=== PATIENT | female | born 1985 | race American Indian/Alaskan Native ===

== ENCOUNTER 2020-02-19 00:55 | Emergency (ER) | payer MEDICARE ==
[2020-02-19] MEDS ORDERED: levETIRAcetam 1000 MG/NS 0.75% 1,000 MG/100 ML BAG IV ONE (01:01)
--- NOTE | 2020-02-19 01:01 | Emergency Department Report ---
ED Seizure HPI - General Chief Complaint: Seizure Stated Complaint: SEIZURE Time Seen by Provider: 02/19/20 00:59 Source: patient, EMS Mode of arrival: Stretcher Limitations: No Limitations - History of Present Illness Initial Comments: Patient is a 34-year-old female that presents emergency room with EMS for seizure. Patient has a known seizure history. Patient has been noncompliant with her seizure medication for 2 days. Patient had a grand mal seizure at home and her family called EMS. Patient did not have any trauma. Patient denies any complaints except malaise. Patient answering questions appropriate. Patient denies chest pain or shortness of breath. Patient denies recent travel. Patient denies recent international travel. Patient denies exposure to the novel coronavirus. Patient denies sick contacts. Patient denies fever and chills. Patient denies cough. Patient denies diarrhea. Patient denies coming in contact with anybody with symptoms of the novel coronavirus. MD Complaint: seizure -: Sudden Description of Episode: loss of consciousness, tonic-clonic movement -: second(s) Witnessed:: Yes Trauma: No Seizure History: known seizure disorder, history of non-compliance Place: home Possible Precipitating Event: none Associated Symptoms: denies other symptoms - Related Data Home Medications Medication Instructions Recorded Confirmed Last Taken Divalproex ER [Depakote ER] 1,500 mg PO QDAY 07/23/13 08/06/13 08/05/13 21:00 clonazePAM [KlonoPIN] 1 mg PO BID 07/23/13 08/06/13 08/06/13 05:30 Folic Acid 1 mg PO DAILY 08/05/13 08/06/13 08/05/13 21:00 Previous Rx's Medication Instructions Recorded Last Taken Type Naproxen Sodium (Nf) [Anaprox DS 550 mg PO BID PRN #14 tablet 07/23/13 08/03/13 21:00 Rx TAB] HYDROcodone/ACETAMINOPHEN [[place] 1 each PO QID PRN #24 tablet 08/06/13 Unknown Rx 5/325 Tablet] levETIRAcetam [Keppra TAB] 500 mg PO BID 15 Days #30 tablet 02/19/20 Unknown Rx Allergies Allergy/AdvReac Type Severity Reaction Status Date / Time No Known Allergies Allergy Verified 07/23/13 21:14 ED Review of Systems ROS: Stated complaint: SEIZURE Other details as noted in HPI Constitutional: malaise. denies: chills, fever Eyes: denies: eye pain, eye discharge, vision change ENT: denies: ear pain, throat pain Respiratory: denies: cough, shortness of breath, wheezing Cardiovascular: denies: chest pain, palpitations Endocrine: no symptoms reported Gastrointestinal: denies: abdominal pain, nausea, diarrhea Genitourinary: denies: urgency, dysuria, discharge Musculoskeletal: denies: back pain, joint swelling, arthralgia Skin: denies: rash, lesions Neurological: denies: headache, weakness, paresthesias Psychiatric: denies: anxiety, depression Hematological/Lymphatic: denies: easy bleeding, easy bruising ED Past Medical Hx - Past Medical History Previous Medical History?: Yes Hx Hypertension: No Hx Seizures: Yes (on klonopin and depakote) Hx Asthma: No - Surgical History Past Surgical History?: Yes - Family History Family history: no significant - Social History Smoking Status: Never Smoker - Medications Home Medications: Home Medications Medication Instructions Recorded Confirmed Last Taken Type Divalproex ER [Depakote ER] 1,500 mg PO QDAY 07/23/13 08/06/13 08/05/13 21:00 History Naproxen Sodium (Nf) [Anaprox DS 550 mg PO BID PRN #14 tablet 07/23/13 08/06/13 08/03/13 21:00 Rx TAB] clonazePAM [KlonoPIN] 1 mg PO BID 07/23/13 08/06/13 08/06/13 05:30 History Folic Acid 1 mg PO DAILY 08/05/13 08/06/13 08/05/13 21:00 History HYDROcodone/ACETAMINOPHEN [[place] 1 each PO QID PRN #24 tablet 08/06/13 Unknown Rx 5/325 Tablet] levETIRAcetam [Keppra TAB] 500 mg PO BID 15 Days #30 tablet 02/19/20 Unknown Rx ED Physical Exam - General Limitations: No Limitations General appearance: alert, in no apparent distress - Head Head exam: Present: atraumatic, normocephalic - Eye Eye exam: Present: normal appearance - ENT ENT exam: Present: mucous membranes moist - Neck Neck exam: Present: normal inspection - Respiratory Respiratory exam: Present: normal lung sounds bilaterally. Absent: respiratory distress - Cardiovascular Cardiovascular Exam: Present: regular rate, normal rhythm. Absent: systolic murmur, diastolic murmur, rubs, gallop - GI/Abdominal GI/Abdominal exam: Present: soft, normal bowel sounds - Extremities Exam Extremities exam: Present: normal inspection - Back Exam Back exam: Present: normal inspection - Neurological Exam Neurological exam: Present: alert, oriented X3 - Psychiatric Psychiatric exam: Present: normal affect, normal mood - Skin Skin exam: Present: warm, dry, intact, normal color. Absent: rash ED Course Vital Signs 02/19/20 02/19/20 02/19/20 00:58 01:01 01:05 Temperature 99.8 F H Pulse Rate 99 H Respiratory 22 21 Rate Blood Pressure 124/81 [left arm] O2 Sat by Pulse 99 Oximetry - Reevaluation(s) Reevaluation #1: Patient resting comfortably. No seizure activity. Patient is answering questio ns appropriately. 02/19/20 02:16 Reevaluation #2: I discussed all results and clinical findings with patient. I discussed plan of care with patient. Patient agrees with plan of care. Patient is stable for discharge. Patient will be discharged home. Patient given discharge instructions. Patient voiced understanding of discharge instructions. 02/19/20 03:17 ED Medical Decision Making - Lab Data Result diagrams: 02/19/20 01:23 02/19/20 01:23 - Medical Decision Making Patient is a 34-year-old female that presents emergency room for seizure activity. Patient has a known history of seizures. Patient has been noncompliant with out of her medications. Patient is supposed to be on Keppra 500 mg twice a day. Patient had labs done which were essentially markable. P atient was given a gram of Keppra IV. Patient did not have any further seizure activity with EMS or while in ER. Patient stable for discharge. Patient discharged home. Patient given discharge instructions. - Differential Diagnosis Seizure, noncompliance, missed medications. Critical care attestation.: If time is entered above; I have spent that time in minutes in the direct care of this critically ill patient, excluding procedure time. ED Disposition Clinical Impression: Seizure, Noncompliance with medications Disposition: DC-01 TO HOME OR SELFCARE Is pt being admited?: No Does the pt Need Aspirin: No Condition: Stable Instructions: Epilepsy, [id number], Seizure, Adult, [id number] Additional Instructions: Patient to follow-up with primary care in 2 to 3 days. Patient to follow-up with neurology in 2 to 3 days. Patient to rest. Patient to increase water. Patient to avoid strenuous exercise or heavy lifting until cleared by neurology. Patient to avoid driving. Patient to take Tylenol or ibuprofen as needed for pain. Patient to take meds as directed. Patient to return to the ER if condition worsens, changes or new symptoms arise. Prescriptions: levETIRAcetam [Keppra TAB] 500 mg PO BID 15 Days #30 tablet Referrals: PRIMARY CAREMD [Primary Care Provider] - 2-3 Days PATY ERVIN MD [Staff Physician] - 2-3 Days Time of Disposition: 03:19
[2020-02-19 01:57] LABS: Basophils % (Auto) 0.5 % (0.0-1.8); Eosinophils # (Auto) 0.2 K/mm3 (0.0-0.4); Eosinophils % (Auto) 1.7 % (0.0-4.3); Hematocrit 34.1 % (30.3-42.9); Hemoglobin 10.7 gm/dl (10.1-14.3); Lymphocytes # (Auto) 2.7 K/mm3 (1.2-5.4); Lymphocytes % (Auto) 30.5 % (13.4-35.0); Mean Corpuscular HGB Conc 31 % (30-34); Mean Corpuscular Volume 79 fl (79-97); Monocytes # (Auto) 1.2 K/mm3 (0.0-0.8); Monocytes % (Auto) 13.7 % (0.0-7.3); Platelet Count 521 K/mm3 (140-440); Red Blood Count 4.33 M/mm3 (3.65-5.03); Red Cell Distribution Width 16.7 % (13.2-15.2)
[2020-02-19 02:17] LABS: Alanine Aminotransferase 8 units/L (7-56); Blood Urea Nitrogen 9 mg/dL (7-17); Calcium 9.8 mg/dL (8.4-10.2); Hemolysis Index 0
[2020-02-19 02:22] LABS: BUN/Creatinine Ratio 15
[2020-02-19 04:23] VITALS: BP 136/79
== END 2020-02-19 04:26 | disposition home or self-care (01) ==
LOC: ED 00:55
DX: G40.909 Epilepsy, unspecified, not intractable, without status epilepticus (principal); Z91.14 Patient's other noncompliance with medication regimen; Z79.899 Other long term (current) drug therapy
CPT/HCPCS: 36415; 80053; 85025; 96365; 96366; 99283; J1953

== ENCOUNTER 2020-05-26 06:20 | Emergency (ER) | payer MEDICARE ==
--- NOTE | 2020-05-26 07:05 | Emergency Department Report ---
ED Seizure HPI - General Chief Complaint: Seizure Stated Complaint: SEIZURE Time Seen by Provider: 05/26/20 06:47 Source: EMS Mode of arrival: Stretcher Limitations: Altered Mental Status - History of Present Illness Initial Comments: 34-year-old female presents to the ED following a seizure at home, witnessed by her father. Patient apparently has a history of seizure disorder. According to EMS, father reports patient ran out of her Keppra. Patient states to have some amount of developmental delay. She is awake, alert and oriented to place and s elf. Patient states the year is 2006. She has no complaints at this time. MD Complaint: seizure -: This morning Duration of Episode: 4 -: minutes(s) Witnessed:: Yes Seizure History: known seizure disorder, other (ran out of [facility]) Place: home Associated Symptoms: denies other symptoms. denies: chest pain, cough, shortness of breath Treatments Prior to Arrival: none - Related Data Home Medications Medication Instructions Recorded Confirmed Last Taken Divalproex ER [Depakote ER] 1,500 mg PO QDAY 07/23/13 05/26/20 08/05/13 21:00 clonazePAM [KlonoPIN] 1 mg PO BID 07/23/13 05/26/20 08/06/13 05:30 Folic Acid 1 mg PO DAILY 08/05/13 05/26/20 08/05/13 21:00 Previous Rx's Medication Instructions Recorded Last Taken Type Naproxen Sodium (Nf) [Anaprox DS 550 mg PO BID PRN #14 tablet 07/23/13 08/03/13 21:00 Rx TAB] HYDROcodone/ACETAMINOPHEN [[place] 1 each PO QID PRN #24 tablet 08/06/13 Unknown Rx 5/325 Tablet] levETIRAcetam [Keppra TAB] 500 mg PO BID #60 tablet 05/26/20 Unknown Rx Allergies Allergy/AdvReac Type Severity Reaction Status Date / Time No Known Allergies Allergy Verified 07/23/13 21:14 ED Review of Systems ROS: Stated complaint: SEIZURE Other details as noted in HPI Comment: All other systems reviewed and negative Constitutional: denies: fever Respiratory: denies: cough, shortness of breath Cardiovascular: denies: chest pain Neurological: denies: headache ED Past Medical Hx - Past Medical History Previous Medical History?: Yes Hx Hypertension: No Hx Seizures: Yes (Keppra 500mg) Hx Asthma: No - Surgical History Past Surgical History?: No - Social History Smoking Status: Unknown if ever smoked Substance Use Type: None - Medications Home Medications: Home Medications Medication Instructions Recorded Confirmed Last Taken Type Divalproex ER [Depakote ER] 1,500 mg PO QDAY 07/23/13 05/26/20 08/05/13 21:00 History Naproxen Sodium (Nf) [Anaprox DS 550 mg PO BID PRN #14 tablet 07/23/13 05/26/20 08/03/13 21:00 Rx TAB] clonazePAM [KlonoPIN] 1 mg PO BID 07/23/13 05/26/20 08/06/13 05:30 History Folic Acid 1 mg PO DAILY 08/05/13 05/26/20 08/05/13 21:00 History HYDROcodone/ACETAMINOPHEN [[place] 1 each PO QID PRN #24 tablet 08/06/13 05/26/20 Unknown Rx 5/325 Tablet] levETIRAcetam [Keppra TAB] 500 mg PO BID #60 tablet 05/26/20 Unknown Rx ED Physical Exam - General Limitations: Altered Mental Status General appearance: alert, in no apparent distress - Head Head exam: Present: atraumatic, normocephalic - Eye Eye exam: Present: normal appearance, EOMI - ENT ENT exam: Present: mucous membranes moist - Neck Neck exam: Present: normal inspection - Respiratory Respiratory exam: Present: normal lung sounds bilaterally. Absent: respiratory distress - Cardiovascular Cardiovascular Exam: Present: regular rate, normal rhythm - GI/Abdominal GI/Abdominal exam: Present: soft. Absent: distended, tenderness - Extremities Exam Extremities exam: Present: normal inspection - Neurological Exam Neurological exam: Present: alert. Absent: oriented X3 (oriented x2) - Psychiatric Psychiatric exam: Present: normal affect, normal mood - Skin Skin exam: Present: warm, dry, intact, normal color ED Course Vital Signs 05/26/20 05/26/20 05/26/20 06:38 06:45 06:51 Temperature 98.6 F 98.6 F Pulse Rate 103 H 98 H 105 H Respiratory 10 L 20 21 Rate Blood Pressure 110/62 Blood Pressure 110/62 110/62 [Right] O2 Sat by Pulse 100 100 Oximetry 05/26/20 05/26/20 05/26/20 06:52 06:54 07:01 Temperature 98.6 F Pulse Rate 105 H 93 H Respiratory 21 21 23 Rate Blood Pressure 110/62 110/62 Blood Pressure [Right] O2 Sat by Pulse 100 100 100 Oximetry 05/26/20 05/26/20 05/26/20 07:15 07:31 07:45 Temperature Pulse Rate 89 97 H 96 H Respiratory 19 13 15 Rate Blood Pressure 112/66 112/66 112/66 Blood Pressure [Right] O2 Sat by Pulse 100 100 100 Oximetry 05/26/20 05/26/20 05/26/20 08:01 08:15 08:31 Temperature Pulse Rate 89 99 H 94 H Respiratory 22 18 20 Rate Blood Pressure 112/66 112/66 112/66 Blood Pressure [Right] O2 Sat by Pulse 100 100 100 Oximetry ED Medical Decision Making - Lab Data Result diagrams: 05/26/20 07:07 05/26/20 07:07 - Medical Decision Making Patient stable. No seizures here in ED. Labs are unremarkable. Patient given Keppra load. Will discharge with prescriptions. Outpatient follow-up advised, return precautions given. - Differential Diagnosis seizure, med noncompliance, electrolye abnormality Critical care attestation.: If time is entered above; I have spent that time in minutes in the direct care of this critically ill patient, excluding procedure time. ED Disposition Clinical Impression: Seizure Disposition: -01 TO HOME OR SELFCARE Is pt being admited?: No Condition: Stable Instructions: Seizure, Adult, [id number] Prescriptions: levETIRAcetam [Keppra TAB] 500 mg PO BID #60 tablet Referrals: SHAMAR KRUEGER MD [Primary Care Provider] - 3-5 Days PRADEEP FERRARO MD [Referring] - 3-5 Days [facility] [Provider Group] - 3-5 Days Time of Disposition: 09:20
[2020-05-26] MEDS ORDERED: levETIRAcetam 1,000 MG in SODIUM CHLORIDE 0.9% 100 ML IV ONE (07:30)
[2020-05-26 07:33] LABS: Basophils # (Auto) 0.1 K/mm3 (0.0-0.1); Basophils % (Auto) 0.9 % (0.0-1.8); Eosinophils # (Auto) 0.1 K/mm3 (0.0-0.4); Eosinophils % (Auto) 1.6 % (0.0-4.3); Hematocrit 35.8 % (30.3-42.9); Hemoglobin 11.6 gm/dl (10.1-14.3); Lymphocytes # (Auto) 2.1 K/mm3 (1.2-5.4); Lymphocytes % (Auto) 29.1 % (13.4-35.0); Mean Corpuscular HGB Conc 32 % (30-34); Mean Corpuscular Volume 81 fl (79-97); Monocytes # (Auto) 0.9 K/mm3 (0.0-0.8); Monocytes % (Auto) 11.9 % (0.0-7.3); Platelet Count 472 K/mm3 (140-440); Red Blood Count 4.44 M/mm3 (3.65-5.03); Red Cell Distribution Width 16.9 % (13.2-15.2)
[2020-05-26 07:46] LABS: Blood Urea Nitrogen 7 mg/dL (7-17); Calcium 9.3 mg/dL (8.4-10.2); Hemolysis Index 1
[2020-05-26] MEDS ORDERED: levETIRAcetam 1000 MG/NS 0.75% 1,000 MG/100 ML BAG IV ONE ×2 (07:48→08:00)
[2020-05-26 08:21] LABS: BUN/Creatinine Ratio 10
[2020-05-26 08:48] VITALS: BP 112/66
== END 2020-05-26 10:21 | disposition home or self-care (01) ==
LOC: ED 06:20
DX: R56.9 Unspecified convulsions (principal); Z79.899 Other long term (current) drug therapy
CPT/HCPCS: 36415; 80048; 84703; 85025; 96365; 99284; J1953

== ENCOUNTER 2020-07-30 14:36 | Emergency (ER) | payer MEDICARE ==
[2020-07-30 15:00] VITALS: BP 131/82
[2020-07-30] MEDS ORDERED: levETIRAcetam 1000 MG/NS 0.75% 1,000 MG/100 ML BAG IV ONE (15:02)
--- NOTE | 2020-07-30 15:08 | Emergency Department Report ---
ED Seizure HPI - General Chief Complaint: Seizure Stated Complaint: SEIZURE Time Seen by Provider: 07/30/20 14:58 Source: patient Mode of arrival: Stretcher Limitations: No Limitations - History of Present Illness Initial Comments: CC: seizure HPI: This is a 34 yo female with hx of seizure disorder who presents with witnessed seizure by household member according to EMS. According to family member report, patient has run out of seizure medication. EMS presented empty prescription bottle. Prescription bottle label had Keppra prescribed to 500 mg twice daily. According to electronic medical record in 2013 patient had taken Depakote 1500 mg daily at that time. Patient currently nonverbal. She is awake alert. She has purposeful movement. She tracks with eyes. However she will not give history. MD Complaint: seizure -: This afternoon Description of Episode: loss of consciousness, tonic-clonic movement Witnessed:: Yes Trauma: No Seizure History: known seizure disorder Associated Symptoms: denies other symptoms - Related Data Home Medications Medication Instructions Recorded Confirmed Last Taken Divalproex ER [Depakote ER] 1,500 mg PO QDAY 07/23/13 05/26/20 08/05/13 21:00 clonazePAM [KlonoPIN] 1 mg PO BID 07/23/13 05/26/20 08/06/13 05:30 Folic Acid 1 mg PO DAILY 08/05/13 05/26/20 08/05/13 21:00 Previous Rx's Medication Instructions Recorded Last Taken Type Naproxen Sodium (Nf) [Anaprox DS 550 mg PO BID PRN #14 tablet 07/23/13 08/03/13 21:00 Rx TAB] HYDROcodone/ACETAMINOPHEN [[place] 1 each PO QID PRN #24 tablet 08/06/13 Unknown Rx 5/325 Tablet] levETIRAcetam [Keppra TAB] 500 mg PO BID #60 tablet 05/26/20 Unknown Rx levETIRAcetam [Keppra TAB] 500 mg PO BID 90 Days #180 tablet 07/30/20 Unknown Rx Allergies Allergy/AdvReac Type Severity Reaction Status Date / Time No Known Allergies Allergy Verified 07/23/13 21:14 ED Review of Systems ROS: Stated complaint: SEIZURE Other details as noted in HPI Comment: Unobtainable due to pts medical conditions (Patient would not cooperate) ED Past Medical Hx - Past Medical History Previous Medical History?: Yes Hx Hypertension: No Hx Seizures: Yes (Keppra 500mg) Hx Asthma: No - Surgical History Past Surgical History?: No - Social History Smoking Status: Unknown if ever smoked - Medications Home Medications: Home Medications Medication Instructions Recorded Confirmed Last Taken Type Divalproex ER [Depakote ER] 1,500 mg PO QDAY 07/23/13 05/26/20 08/05/13 21:00 History Naproxen Sodium (Nf) [Anaprox DS 550 mg PO BID PRN #14 tablet 07/23/13 05/26/20 08/03/13 21:00 Rx TAB] clonazePAM [KlonoPIN] 1 mg PO BID 07/23/13 05/26/20 08/06/13 05:30 History Folic Acid 1 mg PO DAILY 08/05/13 05/26/20 08/05/13 21:00 History HYDROcodone/ACETAMINOPHEN [[place] 1 each PO QID PRN #24 tablet 08/06/13 05/26/20 Unknown Rx 5/325 Tablet] levETIRAcetam [Keppra TAB] 500 mg PO BID #60 tablet 05/26/20 Unknown Rx levETIRAcetam [Keppra TAB] 500 mg PO BID 90 Days #180 tablet 07/30/20 Unknown Rx ED Physical Exam - General Limitations: No Limitations General appearance: alert, in no apparent distress, other (Awake alert purposeful movement will make eye contact will follow limited commands) - Head Head exam: Present: atraumatic, normocephalic - Eye Eye exam: Present: normal appearance - ENT ENT exam: Present: mucous membranes moist - Neck Neck exam: Present: normal inspection, full ROM - Respiratory Respiratory exam: Present: normal lung sounds bilaterally. Absent: respiratory distress, wheezes, rales, rhonchi - Cardiovascular Cardiovascular Exam: Present: regular rate, normal rhythm, normal heart sounds. Absent: systolic murmur, diastolic murmur, rubs, gallop - GI/Abdominal GI/Abdominal exam: Present: soft, normal bowel sounds. Absent: distended, t enderness, guarding, rebound - Extremities Exam Extremities exam: Present: normal inspection - Neurological Exam Neurological exam: Present: alert - Psychiatric Psychiatric exam: Present: flat affect - Skin Skin exam: Present: warm, dry, intact, normal color. Absent: rash ED Course Vital Signs 07/30/20 14:56 Temperature 99 F Pulse Rate 102 H Respiratory 16 Rate Blood Pressure 131/82 O2 Sat by Pulse 98 Oximetry ED Medical Decision Making - Medical Decision Making Breakthrough seizure: History of seizure disorder. Patient received IV Keppra load. Depakote level negligible. I do not suspect patient is taking this medication. I spoke with father by phone. Patient's last dose of Keppra was 2 days ago. He appreciated the 90-day prescription. Patient now is awake alert and verbal. Vital signs are stable. Critical care attestation.: If time is entered above; I have spent that time in minutes in the direct care of this critically ill patient, excluding procedure time. ED Disposition Clinical Impression: Breakthrough seizure, Seizure disorder Disposition: DC-01 TO HOME OR SELFCARE Is pt being admited?: No Does the pt Need Aspirin: No Condition: Stable Prescriptions: levETIRAcetam [Keppra TAB] 500 mg PO BID 90 Days #180 tablet Referrals: PRADEEP FERRARO MD [Referring] - as needed
[2020-07-30] MEDS ORDERED: ONDANSETRON 4 MG/2 ML INJ IV ONE (16:45)
== END 2020-07-30 17:25 | disposition home or self-care (01) ==
LOC: ED 14:36
DX: G40.909 Epilepsy, unspecified, not intractable, without status epilepticus (principal); Z79.899 Other long term (current) drug therapy
CPT/HCPCS: 36415; 80164; 96374; 96375; 99283; J1953; J2405

== ENCOUNTER 2020-11-03 22:47 | Emergency (ER) | payer MEDICARE ==
[2020-11-03] MEDS ORDERED: levETIRAcetam 1000 MG/NS 0.75% 1,000 MG/100 ML BAG IV ONE (23:17)
[2020-11-03] MEDS ORDERED: SODIUM CHLORIDE 0.9% 1000 ML 1,000 ML IV ONE (23:23)
--- NOTE | 2020-11-03 23:25 | Emergency Department Report ---
HPI - General Chief Complaint: Seizure Time Seen by Provider: 11/03/20 23:14 - HPI HPI: This is a 35-year-old female presents to the emergency department via EMS from home initially with the complaint of having a seizure earlier in the day and needing a refill for her seizure medication. While in triage, the patient had some witnessed seizure-like activity, and presents back to room #5 postictal and a poor historian. The patient has been to this emergency department previously, last seen in July of this year, for similar symptoms. She has a known seizure disorder for which she takes Keppra and years ago was also on Depakote. ED Past Medical Hx - Past Medical History Hx Hypertension: No Hx Seizures: Yes (Keppra 500mg) Hx Asthma: No - Social History Smoking Status: Unknown if ever smoked - Medications Home Medications: Home Medications Medication Instructions Recorded Confirmed Last Taken Type Divalproex ER [Depakote ER] 1,500 mg PO QDAY 07/23/13 05/26/20 08/05/13 21:00 History Naproxen Sodium (Nf) [Anaprox DS 550 mg PO BID PRN #14 tablet 07/23/13 05/26/20 08/03/13 21:00 Rx TAB] clonazePAM [KlonoPIN] 1 mg PO BID 07/23/13 05/26/20 08/06/13 05:30 History Folic Acid 1 mg PO DAILY 08/05/13 05/26/20 08/05/13 21:00 History HYDROcodone/ACETAMINOPHEN [[place] 1 each PO QID PRN #24 tablet 08/06/13 05/26/20 Unknown Rx 5/325 Tablet] levETIRAcetam [Keppra TAB] 500 mg PO BID 90 Days #180 tablet 07/30/20 Unknown Rx levETIRAcetam [Keppra TAB] 500 mg PO BID #60 tablet 11/04/20 Unknown Rx ED Review of Systems ROS: Stated complaint: REFILL MEDS/SEIZURE Other details as noted in HPI Comment: Unobtainable due to pts medical conditions Physical Exam - Physical Exam Vital Signs: Vital Signs 11/03/20 11/03/20 23:08 23:10 Pulse Rate 124 H Respiratory 29 H Rate O2 Sat by Pulse 100 98 Oximetry Physical Exam: GENERAL: The patient is well-developed well-nourished. HENT: Normocephalic. Atraumatic. Patient has moist mucous membranes. EYES: Extraocular motions are intact. Pupils equal reactive to light bilaterally. NECK: Supple. Trachea is midline. CHEST/LUNGS: Clear to auscultation. There is no respiratory distress noted. HEART/CARDIOVASCULAR: Regular. There is mild tachycardia. There is no murmur. ABDOMEN: Abdomen is soft, nontender. Patient has normal bowel sounds. There is no abdominal distention. SKIN: Skin is warm and dry. NEURO: The patient is awake, alert. Patient is nonverbal. MUSCULOSKELETAL: There is no tenderness or deformity. ED Course Vital Signs 11/03/20 11/03/20 23:08 23:10 Pulse Rate 124 H Respiratory 29 H Rate O2 Sat by Pulse 100 98 Oximetry ED Medical Decision Making - Lab Data Result diagrams: 11/03/20 23:21 11/03/20 23:21 Lab Results 11/03/20 11/03/20 11/03/20 Range/Units 23:21 23:21 23:21 WBC 9.7 (4.5-11.0) K/mm3 RBC 4.52 (3.65-5.03) M/mm3 Hgb 12.3 (10.1-14.3) gm/dl Hct 38.3 (30.3-42.9) % MCV 85 (79-97) fl MCH 27 L (28-32) pg MCHC 32 (30-34) % RDW 16.3 H (13.2-15.2) % Plt Count 473 H (140-440) K/mm3 Sodium 139 (137-145) mmol/L Potassium 3.5 L (3.6-5.0) mmol/L Chloride 100.8 (98-107) mmol/L Carbon Dioxide 12 L (22-30) mmol/L Anion Gap 30 mmol/L BUN 10 (7-17) mg/dL Creatinine 0.8 (0.6-1.2) mg/dL Estimated GFR > 60 ml/min BUN/Creatinine Ratio 13 % Glucose 116 H (65-100) mg/dL Calcium 10.1 (8.4-10.2) mg/dL Total Bilirubin 0.20 (0.1-1.2) mg/dL AST 82 H (5-40) units/L ALT 107 H (7-56) units/L Alkaline Phosphatase 70 (35-129) units/L Total Protein 8.3 H (6.3-8.2) g/dL Albumin 4.4 (3.9-5) g/dL Albumin/Globulin Ratio 1.1 % TSH 4.610 H (0.270-4.200) mlU/mL HCG, Qual (Negative) Urine Color (Yellow) Urine Turbidity (Clear) Urine pH (5.0-7.0) Ur Specific [place] (1.003-1.030) Urine Protein (Negative) mg/dL Urine Glucose (UA) (Negative) mg/dL Urine Ketones (Negative) mg/dL Urine Blood (Negative) Urine Nitrite (Negative) Urine Bilirubin (Negative) Urine Urobilinogen (<2.0) mg/dL Ur Leukocyte Esterase (Negative) Urine WBC (Auto) (0.0-6.0) /HPF Urine RBC (Auto) (0.0-6.0) /HPF U Epithel Cells (Auto) (0-13.0) /HPF Urine Bacteria (Auto) (Negative) /HPF Urine Mucus /HPF Urine Opiates Screen Urine Methadone Screen Ur Barbiturates Screen Ur Phencyclidine Scrn Ur Amphetamines Screen U Benzodiazepines Scrn Urine Cocaine Screen U Marijuana (THC) Screen Drugs of Abuse Note Plasma/Serum Alcohol (0-0.07) % 11/03/20 11/04/20 11/04/20 Range/Units 23:21 00:11 01:39 WBC (4.5-11.0) K/mm3 RBC (3.65-5.03) M/mm3 Hgb (10.1-14.3) gm/dl Hct (30.3-42.9) % MCV (79-97) fl MCH (28-32) pg MCHC (30-34) % RDW (13.2-15.2) % Plt Count (140-440) K/mm3 Sodium (137-145) mmol/L Potassium (3.6-5.0) mmol/L Chloride (98-107) mmol/L Carbon Dioxide (22-30) mmol/L Anion Gap mmol/L BUN (7-17) mg/dL Creatinine (0.6-1.2) mg/dL Estimated GFR ml/min BUN/Creatinine Ratio % Glucose (65-100) mg/dL Calcium (8.4-10.2) mg/dL Total Bilirubin (0.1-1.2) mg/dL AST (5-40) units/L ALT (7-56) units/L Alkaline Phosphatase (35-129) units/L Total Protein (6.3-8.2) g/dL Albumin (3.9-5) g/dL Albumin/Globulin Ratio % TSH (0.270-4.200) mlU/mL HCG, Qual Negative (Negative) Urine Color Yellow (Yellow) Urine Turbidity Clear (Clear) Urine pH 5.0 (5.0-7.0) Ur Specific [place] 1.021 (1.003-1.030) Urine Protein 100 mg/dl (Negative) mg/dL Urine Glucose (UA) Neg (Negative) mg/dL Urine Ketones Neg (Negative) mg/dL Urine Blood Sm (Negative) Urine Nitrite Neg (Negative) Urine Bilirubin Neg (Negative) Urine Urobilinogen 4.0 (<2.0) mg/dL Ur Leukocyte Esterase Sm (Negative) Urine WBC (Auto) 5.0 (0.0-6.0) /HPF Urine RBC (Auto) 3.0 (0.0-6.0) /HPF U Epithel Cells (Auto) 3.0 (0-13.0) /HPF Urine Bacteria (Auto) 1+ (Negative) /HPF Urine Mucus 1+ /HPF Urine Opiates Screen Urine Methadone Screen Ur Barbiturates Screen Ur Phencyclidine Scrn Ur Amphetamines Screen U Benzodiazepines Scrn Urine Cocaine Screen U Marijuana (THC) Screen Drugs of Abuse Note Plasma/Serum Alcohol < 0.01 (0-0.07) % 11/04/20 Range/Units 01:39 WBC (4.5-11.0) K/mm3 RBC (3.65-5.03) M/mm3 Hgb (10.1-14.3) gm/dl Hct (30.3-42.9) % MCV (79-97) fl MCH (28-32) pg MCHC (30-34) % RDW (13.2-15.2) % Plt Count (140-440) K/mm3 Sodium (137-145) mmol/L Potassium (3.6-5.0) mmol/L Chloride (98-107) mmol/L Carbon Dioxide (22-30) mmol/L Anion Gap mmol/L BUN (7-17) mg/dL Creatinine (0.6-1.2) mg/dL Estimated GFR ml/min BUN/Creatinine Ratio % Glucose (65-100) mg/dL Calcium (8.4-10.2) mg/dL Total Bilirubin (0.1-1.2) mg/dL AST (5-40) units/L ALT (7-56) units/L Alkaline Phosphatase (35-129) units/L Total Protein (6.3-8.2) g/dL Albumin (3.9-5) g/dL Albumin/Globulin Ratio % TSH (0.270-4.200) mlU/mL HCG, Qual (Negative) Urine Color (Yellow) Urine Turbidity (Clear) Urine pH (5.0-7.0) Ur Specific [place] (1.003-1.030) Urine Protein (Negative) mg/dL Urine Glucose (UA) (Negative) mg/dL Urine Ketones (Negative) mg/dL Urine Blood (Negative) Urine Nitrite (Negative) Urine Bilirubin (Negative) Urine Urobilinogen (<2.0) mg/dL Ur Leukocyte Esterase (Negative) Urine WBC (Auto) (0.0-6.0) /HPF Urine RBC (Auto) (0.0-6.0) /HPF U Epithel Cells (Auto) (0-13.0) /HPF Urine Bacteria (Auto) (Negative) /HPF Urine Mucus /HPF Urine Opiates Screen Presumptive negative Urine Methadone Screen Presumptive negative Ur Barbiturates Screen Presumptive negative Ur Phencyclidine Scrn Presumptive negative Ur Amphetamines Screen Presumptive negative U Benzodiazepines Scrn Presumptive negative Urine Cocaine Screen Presumptive negative U Marijuana (THC) Screen Presumptive negative Drugs of Abuse Note Disclamer Plasma/Serum Alcohol (0-0.07) % - EKG Data -: EKG Interpreted by Nm EKG shows normal: sinus rhythm, axis, intervals, QRS complexes, ST-T waves Rate: normal - EKG Data When compared to previous EKG there are: previous EKG unavailable Interpretation: normal EKG - Radiology Data Radiology results: report reviewed CT head without contrast INDICATION : Seizures, AMS. TECHNIQUE: Axial imaging performed from the skull apex through the skull base without the use of contrast. All CT scans at this location are performed using CT dose reduction for ALARA by means of automated exposure control. COMPARISON: None FINDINGS: Very limited exam due to severe motion. No gross abnormality is identified. IMPR ESSION: 1. Limited exam due to severe motion. Exam is nondiagnostic. 2. No gross abnormality. - Medical Decision Making This patient presented to the emergency department after having a witnessed seizure at home and then some seizure-like activity in triage. The patient did not receive any Ativan prior to coming back to the main emergency department and being placed in room #5. I immediately went in to evaluate the patient and found her awake and alert, tracking me with her eyes, but otherwise she is nonverbal and not following commands. I felt that the patient may be postictal at this time. Orders were placed including a loading dose of Keppra and some IV fluid resuscitation. The patient's labs were mostly unremarkable except for some elevated LFTs. Patient does not appear to have any abdominal tenderness to palpation. The TSH level was slightly elevated but I do not believe there is any significant thyroid dysfunction. The patient was reevaluated multiple times over multiple hours. At first, the patient was nonverbal. I was concerned that there could be a prolonged postictal period, so a CT scan of the head without contrast was completed. While the patient was not seen moving much while laying in the gurney, when she went to CT scan apparently she continued to move her head so the CT imaging was suboptimal. It was read by radiology as no significant gross abnormality seen, but otherwise nondiagnostic. The patient has been in the emergency department for more than 4 hours without any further seizure-like activity. The patient has started to respond to me. She has been seen ambulatory in the emergency department and appears stable. Patient's father eventually came to bedside and tells me that the patient "does not say much or communicate much." This also appears consistent with previous ER visits. He feels that she is back at her baseline mental status. Given this, as well as the fact that the patient has a known seizure disorder, has not had any further seizure-like activity, and is able to show a stable gait, I did not feel that the patient required repeat CT imaging of the head at this time. Patient will be given a refill of her Keppra. They have been instructed to follow-up with their primary care physician at [facility]. They have been given an outpatient referral for neurology. We discussed avoiding driving, avoiding alcohol and illicit drugs, avoiding excessive caffeine. I was given permission by the patient to go over lab and imaging results with her father. I told her father about the elevated LFTs. Critical Care Time: No Critical care attestation.: If time is entered above; I have spent that time in minutes in the direct care of this critically ill patient, excluding procedure time. ED Disposition Clinical Impression: Seizure disorder, Medication refill, Elevated LFTs Disposition: 01 HOME / SELF CARE / HOMELESS Is pt being admited?: No Condition: Stable Instructions: Epilepsy, Seizure, Adult Additional Instructions: Please follow-up with your primary care physician in the next few days. I am giving you a referral for a local neurologist, Dr. Ferraro, to follow-up regarding your seizures. Because of your seizure disorder and these recent seizures, you are not allowed to drive or operate any heavy machinery for at least 6 months, or until cleared by your PCP or neurologist. Please avoid any alcohol, illicit drug use, excessive caffeine, and try to get 8 hours of uninterrupted sleep at night. Return to the emergency department with any worsening of your symptoms, new or concerning symptoms not addressed during this current emergency department visit, or with any acute distress. Prescriptions: levETIRAcetam [Keppra TAB] 500 mg PO BID #60 tablet Referrals: JARON HERNANDESLIMA MD JANINE [Primary Care Provider] - 3-5 Days PRADEEP FERRARO MD [Referring] - 3-5 Days [facility] [Provider Group] - 3-5 Days Time of Disposition: 03:15
[2020-11-03 23:45] LABS: Hematocrit 38.3 % (30.3-42.9); Hemoglobin 12.3 gm/dl (10.1-14.3); Mean Corpuscular HGB Conc 32 % (30-34); Mean Corpuscular Volume 85 fl (79-97); Platelet Count 473 K/mm3 (140-440); Red Blood Count 4.52 M/mm3 (3.65-5.03); Red Cell Distribution Width 16.3 % (13.2-15.2)
[2020-11-03 23:55] LABS: Alanine Aminotransferase 107 units/L (7-56); Albumin 4.4 g/dL (3.9-5); BUN/Creatinine Ratio 13; Blood Urea Nitrogen 10 mg/dL (7-17); Calcium 10.1 mg/dL (8.4-10.2); Hemolysis Index 5
--- NOTE | 2020-11-04 01:08 | Cat Scan Report ---
CT head without contrast INDICATION : Seizures, AMS. TECHNIQUE: Axial imaging performed from the skull apex through the skull base without the use of con trast. All CT scans at this location are performed using CT dose reduction for ALARA by means of aut omated exposure control. COMPARISON: None FINDINGS: Very limited exam due to severe motion. No gross abnormality is identified. IMPRESSION: 1. Limited exam due to severe motion. Exam is nondiagnostic. 2. No gross abnormality. Signer Name: Jim Mccarthy MD Signed: 11/04/2020 1:04 AM Workstation Name: [id number]
[2020-11-04 01:26] VITALS: BP 124/67
[2020-11-04 02:16] LABS: Amphetamine Screen,Urine PRESUMPTIVE NEGATIVE; Benzodiazepines Screen,Urine PRESUMPTIVE NEGATIVE; Cannabinoid Screen,Urine PRESUMPTIVE NEGATIVE; Cocaine Screen,Urine PRESUMPTIVE NEGATIVE; Methadone Screen,Urine PRESUMPTIVE NEGATIVE; Opiate Screen,Urine PRESUMPTIVE NEGATIVE
[2020-11-04 02:54] LABS: Bacteria,Urine 1+ /HPF (Negative); Bilirubin,Urine NEG (Negative); Blood,Urine SM (Negative); Color,Urine Yellow (Yellow); Mucus,Urine 1+ /HPF
--- NOTE | 2020-11-07 08:49 | Electrocardiograph Report ---
[facility] Test Date: 2020-11-04 Test Time: 00:43:01 Pat Name: EMMA ROMAN Department: Room: Gender: F Moth Exterminator: AARON : 1985 Requested By: BETH CALLAHAN Order Number: [id number] Reading MD: Morteza Sellers Measurements Intervals [place] Rate: 98 P: 45 MA: 185 QRS: 52 QRSD: 84 T: 35 QT: 338 QTc: 432 Interpretive Statements Sinus rhythm No previous ECG available for comparison Electronically Signed On 11-07-2020 8:48:25 EDT by Morteza Sellers
== END 2020-11-04 03:37 | disposition home or self-care (01) ==
LOC: ED 22:47
DX: G40.909 Epilepsy, unspecified, not intractable, without status epilepticus (principal); Z76.0 Encounter for issue of repeat prescription; R94.5 Abnormal results of liver function studies
CPT/HCPCS: 36415; 70450; 80053; 80307; 81001; 84443; 84703; 85027; 93005; 96365; 99284; J1953; J7030; 80320; G0480

== ENCOUNTER 2020-12-03 14:51 | Emergency (ER) | payer MEDICARE ==
[2020-12-03] MEDS ORDERED: levETIRAcetam 1,000 MG in SODIUM CHLORIDE 0.9% 100 ML IV ONE (15:20)
[2020-12-03 16:03] LABS: Basophils % (Auto) 0.7 % (0.0-1.8); Eosinophils # (Auto) 0.1 K/mm3 (0.0-0.4); Eosinophils % (Auto) 1.5 % (0.0-4.3); Hematocrit 37.3 % (30.3-42.9); Hemoglobin 12.1 gm/dl (10.1-14.3); Lymphocytes # (Auto) 2.3 K/mm3 (1.2-5.4); Lymphocytes % (Auto) 33.5 % (13.4-35.0); Mean Corpuscular HGB Conc 33 % (30-34); Mean Corpuscular Volume 83 fl (79-97); Monocytes # (Auto) 1.1 K/mm3 (0.0-0.8); Monocytes % (Auto) 15.5 % (0.0-7.3); Platelet Count 457 K/mm3 (140-440); Red Blood Count 4.49 M/mm3 (3.65-5.03)
[2020-12-03 16:27] LABS: Blood Urea Nitrogen 10 mg/dL (7-17); Calcium 10.2 mg/dL (8.4-10.2); Hemolysis Index 14
[2020-12-03 16:33] VITALS: BP 137/79
[2020-12-03 16:35] LABS: BUN/Creatinine Ratio 17
--- NOTE | 2020-12-03 16:36 | Emergency Department Report ---
ED Seizure HPI - General Chief Complaint: Seizure Stated Complaint: SEIZURE Time Seen by Provider: 12/03/20 15:19 Source: patient, EMS Mode of arrival: Stretcher Limitations: No Limitations - History of Present Illness Initial Comments: 35-year-old female, history of seizure disorder, presents to ED following seizure at home. Per EMS patient has ran out of her Keppra. Per EMS patient often comes to the ED after running out of seizure meds and requiring a refill. Per EMS patient is nonverbal and is currently at her baseline per family at home. During patient's last visit, father reported that patient does not communicate much. Patient is awake and alert. She is smiling, but does not answer any my questions. MD Complaint: seizure -: This afternoon Witnessed:: Yes Seizure History: known seizure disorder Place: home Possible Precipitating Event: other (Ran out of medication) Treatments Prior to Arrival: none - Related Data Home Medications Medication Instructions Recorded Confirmed Last Taken Divalproex ER [Depakote ER] 1,500 mg PO QDAY 07/23/13 05/26/20 08/05/13 21:00 clonazePAM [KlonoPIN] 1 mg PO BID 07/23/13 05/26/20 08/06/13 05:30 Folic Acid 1 mg PO DAILY 08/05/13 05/26/20 08/05/13 21:00 Previous Rx's Medication Instructions Recorded Last Taken Type Naproxen Sodium (Nf) [Anaprox DS 550 mg PO BID PRN #14 tablet 07/23/13 08/03/13 21:00 Rx TAB] HYDROcodone/ACETAMINOPHEN [[place] 1 each PO QID PRN #24 tablet 08/06/13 Unknown Rx 5/325 Tablet] levETIRAcetam [Keppra TAB] 500 mg PO BID 90 Days #180 tablet 07/30/20 Unknown Rx levETIRAcetam [Keppra TAB] 500 mg PO BID #60 tablet 11/04/20 Unknown Rx levETIRAcetam [Keppra TAB] 500 mg PO BID #60 tablet 12/03/20 Unknown Rx Allergies Allergy/AdvReac Type Severity Reaction Status Date / Time No Known Allergies Allergy Verified 07/23/13 21:14 ED Review of Systems ROS: Stated complaint: SEIZURE Other details as noted in HPI Comment: Unobtainable due to pts medical conditions Neurological: other (seizure reported) ED Past Medical Hx - Past Medical History Hx Hypertension: No Hx Seizures: Yes (Keppra 500mg) Hx Asthma: No - Social History Smoking Status: Unknown if ever smoked - Medications Home Medications: Home Medications Medication Instructions Recorded Confirmed Last Taken Type Divalproex ER [Depakote ER] 1,500 mg PO QDAY 07/23/13 05/26/20 08/05/13 21:00 History Naproxen Sodium (Nf) [Anaprox DS 550 mg PO BID PRN #14 tablet 07/23/13 05/26/20 08/03/13 21:00 Rx TAB] clonazePAM [KlonoPIN] 1 mg PO BID 07/23/13 05/26/20 08/06/13 05:30 History Folic Acid 1 mg PO DAILY 08/05/13 05/26/20 08/05/13 21:00 History HYDROcodone/ACETAMINOPHEN [[place] 1 each PO QID PRN #24 tablet 08/06/13 05/26/20 Unknown Rx 5/325 Tablet] levETIRAcetam [Keppra TAB] 500 mg PO BID 90 Days #180 tablet 07/30/20 Unknown Rx levETIRAcetam [Keppra TAB] 500 mg PO BID #60 tablet 11/04/20 Unknown Rx levETIRAcetam [Keppra TAB] 500 mg PO BID #60 tablet 12/03/20 Unknown Rx ED Physical Exam - General Limitations: No Limitations General appearance: alert, in no apparent distress - Head Head exam: Present: atraumatic, normocephalic - Eye Eye exam: Present: normal appearance, PERRL, EOMI - ENT ENT exam: Present: mucous membranes moist - Neck Neck exam: Present: normal inspection - Respiratory Respiratory exam: Present: normal lung sounds bilaterally. Absent: respiratory distress - Cardiovascular Cardiovascular Exam: Present: regular rate, normal rhythm - GI/Abdominal GI/Abdominal exam: Present: soft. Absent: distended, tenderness - Extremities Exam Extremities exam: Present: normal inspection - Neurological Exam Neurological exam: Present: alert, other (Patient smiling and laughing to herself, moving all extremities) - Psychiatric Psychiatric exam: Present: normal affect, normal mood - Skin Skin exam: Present: warm, dry, intact, normal color ED Course Vital Signs 12/03/20 15:30 Temperature 99.5 F Pulse Rate 102 H Respiratory 16 Rate Blood Pressure 137/79 [Right] O2 Sat by Pulse 100 Oximetry ED Medical Decision Making - Lab Data Result diagrams: 12/03/20 15:36 12/03/20 15:36 - Medical Decision Making No seizure activity during ED stay. Labs are unremarkable. Patient appears comfortable. She is in no acute distress. She has been loaded with Keppra and will be discharged home at this time with refill. Critical care attestation.: If time is entered above; I have spent that time in minutes in the direct care of this critically ill patient, excluding procedure time. ED Disposition Clinical Impression: Seizure Disposition: HOME / SELF CARE / HOMELESS Is pt being admited?: No Condition: Stable Prescriptions: levETIRAcetam [Keppra TAB] 500 mg PO BID #60 tablet Referrals: [facility] [Provider Group] - 3-5 Days PRADEEP FERRARO MD [Referring] - 3-5 Days PRIMARY CAREMD [Primary Care Provider] - 3-5 Days
== END 2020-12-03 17:54 | disposition home or self-care (01) ==
LOC: ED 14:51
DX: G40.909 Epilepsy, unspecified, not intractable, without status epilepticus (principal)
CPT/HCPCS: 36415; 80048; 85025; 96365; 99284; J1953